=== PATIENT | male | born 1955 | race Hispanic/Latino ===

== ENCOUNTER 2022-03-07 08:48 | Inpatient (IN) | payer MEDICARE, OTHER ==
[2022-03-07 17:31] VITALS: BMI 29.2
[2022-03-08 00:04] LABS: SARS-CoV-2 PCR by NAA Not Detected (NotDetected)
[2022-03-08] MEDS ORDERED: Lidocaine 2% PF 5 ML VIAL ONE (08:00)
[2022-03-08] MEDS ORDERED: Lidocaine 1% PF 5 ML VIAL ONE (08:16)
[2022-03-08] MEDS ORDERED: PROPOFOL 200 MG/20 ML VIAL ONE (08:16)
[2022-03-08] MEDS ORDERED: Promethazine HCl 25 MG/ML VIAL IVPB PRN (09:21)
[2022-03-08] MEDS ORDERED: Ondansetron HCl/PF 4 MG/2 ML Vial IVP PRN (09:21)
[2022-03-08] MEDS ORDERED: Promethazine HCl 25 MG/ML VIAL IM PRN (09:21)
[2022-03-08 11:47] VITALS: BP 135/72; TEMP 97.6
== END 2022-03-08 17:36 | disposition home or self-care (01) | DRG 394 ==
LOC: EDSTATUS 15:05 → T4-B 17:08
PROVIDERS: ADMIT Internal Medicine Gastroenterology; ATTEND Internal Medicine Gastroenterology
PROC: 0DJD8ZZ Inspection of Lower Intestinal Tract, Via Natural or Artificial Opening Endoscopic (ICD-10-PCS; principal; 2022-03-07)
DX: K64.8 Other hemorrhoids (principal); G82.20 Paraplegia, unspecified; K59.2 Neurogenic bowel, not elsewhere classified; N31.9 Neuromuscular dysfunction of bladder, unspecified; Z20.822 Contact with and (suspected) exposure to COVID-19; D64.9 Anemia, unspecified; Z88.2 Allergy status to sulfonamides; Z88.1 Allergy status to other antibiotic agents; Z79.899 Other long term (current) drug therapy
CPT/HCPCS: J2001; J2704; U0003; U0005